=== PATIENT | male | born 1985 | race African-American/Black ===

== ENCOUNTER 2016-08-27 11:29 | Inpatient (IN) | payer OTHER ==
[~2016-08-27] VITALS: Ht 182.9 cm; Wt 68.0 kg
--- NOTE | 2016-08-27 13:25 | NUR ---
DR. MCPHERSON AT BEDSIDE FOR MSE
--- NOTE | 2016-08-27 13:25 | NUR ---
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
--- NOTE | 2016-08-27 13:34 | NUR ---
CHAPERONED WITH DR. MCPHERSON FOR RECTAL EXAM AND OCCULT BLOOD TESTING
--- NOTE | 2016-08-27 13:43 | NUR ---
LAB AT BEDSIDE FOR BLOOD DRAW
--- NOTE | 2016-08-27 13:51 | NUR ---
EKG IN PROGRESS
--- NOTE | 2016-08-27 14:02 | NUR ---
MEDICATIONS ADMINISTERED PER MD ORDER, PLEASE SEE EMAR, PT TOLERATED WELL, PT SITTING IN BED IN A POSITION OF COMFORT SPEAKING WITH FRIEND AT BEDSIDE, IN NO ACUTE DISTRESS, NO ACTIVE VOMITING AT THIS TIME, CALL LIGHT WITHIN REACH, WILL CONTINUE TO MONITOR
[2016-08-27 14:09] LABS: CALCIUM 8.8 mg/dL (8.5-10.1); CHLORIDE SERUM 104 mmol/L (98-107); CREATININE SERUM 1.1 mg/dL (0.7-1.3); GFR1 > 60 mL/min; GLUCOSE SERUM 86 mg/dL (74-106); POTASSIUM SERUM 3.9 mmol/L (3.5-5.1); SODIUM SERUM 140 mmol/L (136-145)
[2016-08-27 14:14] LABS: ALBUMIN 3.7 g/dL (3.4-5.0); ALKALINE PHOSPHATASE 89 U/L (46-116); ALT/SGPT 38 U/L (16-63); AST/SGOT 29 U/L (15-37); BILIRUBIN TOTAL 0.3 mg/dL (0.20-1.00); TOTAL PROTEIN, SERUM 7.4 g/dL (6.4-8.2)
[2016-08-27 14:19] LABS: BASOPHIL % 0.4 % (0-2); PLATELET COUNT 224 x10^3mcL (130-400)
[2016-08-27 14:21] LABS: RED CELL DISTRIBUTION WIDTH 15.9 % (11.5-14.5)
[2016-08-27 15:25] LABS: CHOLESTEROL/HDL RATIO 3.2; MAGNESIUM 1.9 mg/dL (1.8-2.4)
[2016-08-27 15:27] LABS: PHOSPHOROUS 1.6 mg/dL (2.5-4.9)
--- NOTE | 2016-08-27 15:32 | NUR ---
PT RESTING IN BED IN A POSITION OF COMFORT WITH FRIEND AT BEDSIDE, STS PAIN LOWERED TO 4/10 AT THIS TIME, RESP EVEN AND UNLABORED, IN NO ACUTE DISTRESS, CALL LIGHT WITHIN REACH, WILL CONTINUE TO MONITOR
[2016-08-27 16:01] LABS: FREE THYROXINE INDEX 2.1 ug/dL (1.4-4.5); T4(THYROXINE) 6.1 ug/dL (4.7-13.3)
--- NOTE | 2016-08-27 16:21 | NUR ---
REPORT GIVEN TO K[facility]SON OCHOA TELE FLOOR TO ASSUME CARE OF PT AFTER TRANSPORT
--- NOTE | 2016-08-27 16:30 | NUR ---
[facility] [employer], CAME IN DUE TO NAUSEA AND VOMITING X4 EPISODES (BRIGHT RED VOMITUS). AAOX4. DENIES HEADACHE/DIZZINESS. NO SOB NOTED. DENIES CHEST PAIN/PRESSURE, NSR ON THE MONITOR. DENIES ABDOMINAL DISCOMFORT AT THIS TIME. IV SITE PATENT AND INTACT. SIDE RAILS UPX2. CALL LIGHT ON REACH. WILL CONT TO MONITOR
[2016-08-27 16:55] VITALS: BP 106/71
[2016-08-27 16:55] LABS: microscopic required? NO
[2016-08-27 16:56] LABS: AMPHETAMINE QUAL UR NONE DETECTED (NEG <=1000)
[2016-08-27 16:58] VITALS: Ht 182.9 cm; Wt 68.0 kg
[2016-08-27 16:59] LABS: urine erythrocyte NEGATIVE (NEGATIVE)
--- NOTE | 2016-08-27 17:02 | NUR ---
PER DR. CARIAS, HE IS AWARE THAT PHOSPHORUS=1.6
--- NOTE | 2016-08-27 18:20 | NUR ---
PT LYING IN BED, AAOX4. NO C/O PAIN AND SOB. NEEDS ARE ATTENDED. IV SITE PATENT AND INTACT. CALL LIGHT ON REACH. WILL CONT TO MONITOR
--- NOTE | 2016-08-27 18:40 | NUR ---
DR. ROSALES EXPLAINED THE EGD PROCEDURE TO THE PT, ALL QUESTIONS BY THE PT WERE ANSWERED DR DR. ROSALES. PT IS AGREEABLE WITH THE PROCEDURE AND SIGNED THE CONSENT FORM
--- NOTE | 2016-08-27 19:09 | NUR ---
ENDORSED TO KARSON SMITH FOR CONTINUITY OF CARE
[2016-08-27 19:10] LABS: T3 TOTAL 0.87 ng/mL
--- NOTE | 2016-08-27 20:04 | NUR ---
RECEIVED PT IN BED, ALERT AND ORIENTED. DENIES HEADACHE/DIZZINESS. RESP. EVEN AND UNLABORED. LUNGS SOUNDS CLEAR BILAT. RESP. EVEN AND UNLABORED. ON ROOM AIR, NO DISTRESS NOTED. AFEBRILE AND VITAL SIGNS STABLE. SR ON THE MONITOR. DENIES CHEST PAIN OR PRESSURE. ABD.SOFT, NON DISTENDED, BS ACTIVE. NO N/V NOTED. FOR EGD IN AM, PT AWARE, INSTRUCTED TO MAINTAIN NPO AFTER MN, PT VERBALIZED UNDERSTANDING. IVF, NS AT 100ML/HR, INTACT AND INFUSING VIA LAC. SITE CLEAR . ABLE TO MOVE ALL EXTS. ASSISTED WITH HS CARE. CALL LIGHT WITHIN REACH. WILL CONTINUE TO MONITOR.
[2016-08-27 22:05] LABS: FREE T4 0.79 ng/dL (0.76-1.46)
--- NOTE | 2016-08-27 22:10 | NUR ---
COMPLAINED OF ABD.PAIN. STATES 5/10 ON PAIN LEVEL. WILL CONTNUE TO MONITOR.
[2016-08-27 22:14] VITALS: BP 121/83
--- NOTE | 2016-08-27 22:14 | NUR ---
MEDICATED WITH NORCO 1TAB PO ORDERED. WILL CONTINUE TO MONITOR.
--- NOTE | 2016-08-27 23:07 | NUR ---
SLEEPING AT THIS THIS TIME, APPEARS COMFORTABLE.WILL CONTINUE TO MONITOR.
--- NOTE | 2016-08-28 00:10 | NUR ---
NO COMPLAINTS NOTED AT THIS TIME. ASLEEP, EASILY AROUSABLE. WILL CONTINUE TO MONITOR.
--- NOTE | 2016-08-28 01:30 | NUR ---
PT BACK FROM GI LAB. DENIES ANY PAIN OR DISCOMFORT. VITAL SIGNS STABLE. CALL LIGHT WITHIN REACH.
[2016-08-28 05:45] VITALS: BP 99/44
--- NOTE | 2016-08-28 06:21 | NUR ---
NPO SINCE MN MAINTAINED. NO N/V NOTED. FOR PROCEDURE TODAY. IVF, NS AT 100ML/HR, INTACT AND INFUSING WELL, SITE CLEAR. VOIDING FREELY. REMAINS SR ON THE MONITOR, DENIES CHEST PAIN OR PRESSURE. KEPT COMFORTABLE. AFEBRILE AND VITAL SIGNS STABLE. WILL CONTINUE TO MONITOR.
--- NOTE | 2016-08-28 08:28 | NUR ---
RECEIVED PT IN BED ALERT AND ORIENTED X4. TELE #[phone], NSR 75. DENIES CP. COMPLAINING OF HEADACHE RATED 10/10. WILL MEDICATE WITH NORCO ORDERED. DENIES ABD PAIN OR N/V/D. REPORTS LAST BM WAS YESTERDAY, DESCRIBED BLOODY AND BLACK. VOIDS FREELY. AMBULATORY. SKIN CDI. INSTRUCTED TO USE CALL LIGHT WHEN IN NEED OF ANY ASSISTANCE.
[2016-08-28 08:39] LABS: CALCIUM 8.1 mg/dL (8.5-10.1); CARBON DIOXIDE 29.3 mmol/L (21-32); CHLORIDE SERUM 108 mmol/L (98-107); CREATININE SERUM 1.1 mg/dL (0.7-1.3); GFR1 > 60 mL/min; GLUCOSE SERUM 77 mg/dL (74-106); SODIUM SERUM 143 mmol/L (136-145)
[2016-08-28 08:48] LABS: BASOPHIL % 0.5 % (0-2); PLATELET COUNT 171 x10^3mcL (130-400)
[2016-08-28 09:39] LABS: RED CELL DISTRIBUTION WIDTH 16.1 % (11.5-14.5)
[2016-08-28 11:15] VITALS: BP 101/60
--- NOTE | 2016-08-28 12:10 | NUR ---
PT BROUGHT DOWN TO GI LAB VIA [facility] FOR EGD.
--- NOTE | 2016-08-28 13:30 | NUR ---
PT BACK FROM GI LAB. VITAL SIGNS STABLE. DENIES ANY PAIN OR DISCOMFORT.
[2016-08-28 13:40] VITALS: BP 111/61
--- NOTE | 2016-08-28 18:52 | NUR ---
PT IN BED, HAD REGULAR DIET FOR DINNER, TOLERATED WELL. NO COMPLAINTS OF PAIN OR DISCOMFORT. CALL LIGHT WITHIN REACH.
--- NOTE | 2016-08-28 20:00 | NUR ---
RECEIVED PT IN BED, RESTING. ALERT AND ORIENTED. DENIES ABD.PAIN OR ANY DISCONFORT AT THIS TIME. SR ON THE MONITOR. DENIES CHEST PAIN OR PRESSURE. RESP. EVEN AND UNLABORED. ON ROOM AIR, NO DISTRESS NOTED. IVF, NS AT 100ML/HR, INFUSING VIA LAC, SITE CLEAR. ABD. SOFT, NON DISTENDED, BS ACTIVE. NO N/V NOTED. NO ACTIVE BLEEDING NOTED. AMBULATORY. VOIDING FREELY.ASSISTED WITH HS CARE. CALL LIGHT WITHIN REACH. WILL CONTINUE TO MONITOR.
[2016-08-28 21:14] VITALS: BP 102/51
--- NOTE | 2016-08-28 21:59 | NUR ---
COMPLAINED OF ABD.PAIN, STATES 10, REQUESTING PAIN MED, MEDICATED WITH NORCO 1TAB PO ASORDERED. WILL CONTINUE TO MONITOR.
--- NOTE | 2016-08-28 23:31 | NUR ---
SLEEPING, APEARS COMFORTABLE. EASILY AROUSABLE. NO DISTRESS NOTED.WILL CONTINUE TO MONITOR.
--- NOTE | 2016-08-29 03:20 | NUR ---
NO COMPLAINTS NOTED AT THIS TIME. IVF INTACT AND INFUSING , SITE CLEAR. SR ON THE MONITOR. WILL CONTINUE TOMONITOR.
[2016-08-29 05:39] VITALS: BP 94/41
[2016-08-29 06:23] LABS: CALCIUM 8.5 mg/dL (8.5-10.1); CARBON DIOXIDE 29.5 mmol/L (21-32); CHLORIDE SERUM 105 mmol/L (98-107); CREATININE SERUM 1.1 mg/dL (0.7-1.3); GFR1 > 60 mL/min; GLUCOSE SERUM 81 mg/dL (74-106); MAGNESIUM 1.9 mg/dL (1.8-2.4); PHOSPHOROUS 3.6 mg/dL (2.5-4.9); POTASSIUM SERUM 4.2 mmol/L (3.5-5.1); SODIUM SERUM 138 mmol/L (136-145)
--- NOTE | 2016-08-29 06:32 | NUR ---
SLEPT MOST OF THE NIGHT, NO COMPLAINTS NOTED AT THIS TIME. AFEBRILE AND VITAL SIGNS STABLE. IVF INTACT AND INFUSING WELL, SITE CLEAR.NO BM NOTED DURING THE NIGHT. VOIDING FREELY. AFEBRILE AND VITAL SIGNS STABLE. WILL ENDORSE TO INCOMING NURSE.
[2016-08-29 06:45] LABS: BASOPHIL % 0.7 % (0-2); PLATELET COUNT 175 x10^3mcL (130-400)
[2016-08-29 06:46] LABS: RED CELL DISTRIBUTION WIDTH 15.9 % (11.5-14.5)
--- NOTE | 2016-08-29 07:35 | NUR ---
RECEIVED PT FROM SARAH VIERA RN. PT AAOX4, RESTING IN BED ON LT SIDE WITH C/O SHETTY BUT DID NOT WANT ANY MEDICATION AT THIS TIME. IVF TO LAC AT 100CC/HR. BREATH SOUNDS CLEAR BILATERALLY. ABDOMEN SOFT WITH ACTIVE BOWEL SOUNDS. PULSES PRESENT WITH NO EDEMA NOTED. CALL LIGHT WITHIN REACH.
--- NOTE | 2016-08-29 09:00 | NUR ---
PO NORCO GIVEN FOR PT C/O SHETTY. CALL LIGHT WITHIN REACH.
[2016-08-29 10:03] VITALS: BP 104/61
--- NOTE | 2016-08-29 11:15 | NUR ---
PT GIVEN PO FIORCET FOR CONTINUED C/O SHETTY. CALL LIGHT WITHIN REACH.
--- NOTE | 2016-08-29 13:25 | NUR ---
PT RESTING IN BED ON RT SIDE WITH EYES CLOSED. NO SIGNS OF PAIN AT THIS TIME. CALL LIGHT WITHIN REACH.
[2016-08-29 14:04] VITALS: BP 96/54
--- NOTE | 2016-08-29 16:00 | NUR ---
PT UP IN SHOWER.
[2016-08-29] MEDS ORDERED: PROTONIX40 MG PO (17:27)
--- NOTE | 2016-08-29 18:05 | NUR ---
PT RESTING IN BED WITH EYES CLOSED WITH NO SIGNS OF PAIN AT THIS TIME. CALL LIGHT WITHIN REACH. WILL ENDORSE TO NOC SHIFT.
[2016-08-29 18:13] VITALS: BP 110/60
[2016-08-29 18:30] VITALS: BP 110/60
--- NOTE | 2016-08-29 19:30 | NUR ---
RECEIVED REPORT FROM KARSON HALE. PT RESTING COMFORTABLY IN BED, IN NO ACUTE DISTRESS OR DISCOMFORT. PT HAS ALREADY SIGNED DISCHARGE DOCUMENTATIONS WITH KARSON HALE. IV SITE HAS BEEN REMOVED. PT STATES HE'S CALLING FOR FRIENDS FOR HIS RIDE HOME AND WILL LET ME KNOW ONCE HIS RIDE IS ON HIS WAY. SAFETY MEASURES ENSURED. CALL LIGHT WITHIN REACH.
[2016-08-29 20:26] VITALS: BP 111/59
[2016-08-29] MEDS ORDERED: BIAXIN FILMTAB500 MG PO (20:43)
[2016-08-29] MEDS ORDERED: AMOXICILLIN500 M1 PO ×2 (20:43→20:44)
--- NOTE | 2016-08-29 20:50 | NUR ---
PT'S BROTHER HAS ARRIVED TO GIVE PT RIDE HOME. PT IN NO ACUTE DISTRESS OR DISCOMFORT. LATEST VS TABLE. TELE MON, IV SITE AND ID BANDS REMOVED. PT UNDERSTOOD ALL MEDICATION REGIMENS EXPLAINED BY DR LOBO. ALL DOCUMENTATIONS SIGNED. PT WHEELED OUT BY KARSON GARSIA.
== END 2016-08-29 20:50 | disposition home or self-care (01) | DRG 241 ==
LOC: ED 11:29 → DU 14:45
PROVIDERS: Emergency Medicine; Internal Medicine; ADMIT Family Medicine
PROC: 0DB68ZX Excision of Stomach, Via Natural or Artificial Opening Endoscopic, Diagnostic (ICD-10-PCS; principal; 2016-08-28 12:30)
DX: K29.01 Acute gastritis with bleeding (principal); N17.0 Acute kidney failure with tubular necrosis; B96.81 Helicobacter pylori [H. pylori] as the cause of diseases classified elsewhere; D62 Acute posthemorrhagic anemia; K22.10 Ulcer of esophagus without bleeding; K44.9 Diaphragmatic hernia without obstruction or gangrene; K26.3 Acute duodenal ulcer without hemorrhage or perforation; E83.39 Other disorders of phosphorus metabolism; Z68.20 Body mass index [BMI] 20.0-20.9, adult; Z87.11 Personal history of peptic ulcer disease
CPT/HCPCS: 43235; 80307; 84439; C9113; J1200; J1610; J2250; J2310; J2405; J3010; J3490; J7030; Q0092